=== PATIENT | male | born 1980 | race Caucasian/White ===

== ENCOUNTER 2018-09-18 15:24 | Emergency (ER) | payer MEDICAID ==
[~2018-09-18] VITALS: Ht 167.6 cm; Wt 86.2 kg
[2018-09-18 15:31] VITALS: BP 169/94
--- NOTE | 2018-09-18 15:37 | NUR ---
pt back to er lobby continue to wait for available room for md royal
--- NOTE | 2018-09-18 16:21 | NUR ---
PT AMBULATED TO BED CHAIR C.
--- NOTE | 2018-09-18 16:30 | NUR ---
PT C/O RASH ON TRUNK AND BILAT ARMS X 3 DAYS. 8/10 SHARP PAIN.
--- NOTE | 2018-09-18 16:52 | NUR ---
Patient discharged with v/s stable. Written and verbal after care instructions given and explained. Patient alert, oriented and verbalized understanding of instructions. Ambulatory with steady gait. All questions addressed prior to discharge. ID band removed. Patient advised to follow up with PMD. Rx of KEFELX, TYLENOL AND HYDROCORTISONE given. Patient educated on indication of medication including possible reaction and side effects. Opportunity to ask questions provided and answered.
[2018-09-18 16:53] VITALS: BP 125/75
== END 2018-09-18 16:52 | disposition home or self-care (01) ==
LOC: MED 15:24
DX: S40.861A Insect bite (nonvenomous) of right upper arm, initial encounter (principal); S30.861A Insect bite (nonvenomous) of abdominal wall, initial encounter; L08.9 Local infection of the skin and subcutaneous tissue, unspecified; W57.XXXA Bitten or stung by nonvenomous insect and other nonvenomous arthropods, initial encounter; Y93.89 Activity, other specified; Y92.89 Other specified places as the place of occurrence of the external cause; Y99.8 Other external cause status
CPT/HCPCS: 99283